=== PATIENT | female | born 1990 | race African-American/Black ===

== ENCOUNTER 2024-11-24 12:34 | Emergency (ER) | payer MEDICAID, OTHER ==
[~2024-11-24] VITALS: Ht 157.5 cm; Wt 50.3 kg
[2024-11-24 12:36] VITALS: BP 120/69; TEMP 98.1
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
[2024-11-24 13:20] VITALS: PULSE 62; RESP 16; O2SAT 95
== END 2024-11-24 13:18 ==
LOC: ER 12:34
DX: S80.211A Abrasion, right knee, initial encounter (principal); F10.129 Alcohol abuse with intoxication, unspecified; F12.90 Cannabis use, unspecified, uncomplicated; F17.210 Nicotine dependence, cigarettes, uncomplicated; Y90.9 Presence of alcohol in blood, level not specified; V89.2XXA Person injured in unspecified motor-vehicle accident, traffic, initial encounter; Y93.89 Activity, other specified; Y92.410 Unspecified street and highway as the place of occurrence of the external cause; Y99.8 Other external cause status